=== PATIENT | male | born 1955 | race Caucasian/White ===

== ENCOUNTER 2020-04-15 16:29 | Emergency (ER) | payer MEDICAID ==
[~2020-04-15] VITALS: Ht 152.4 cm; Wt 54.5 kg
[2020-04-15 16:51] VITALS: BP_SYST 137
== END 2020-04-15 17:04 ==
LOC: ER 16:30
DX: Z00.8 Encounter for other general examination (principal); F17.210 Nicotine dependence, cigarettes, uncomplicated; Z72.89 Other problems related to lifestyle
CPT/HCPCS: 99283